=== PATIENT | female | born 1950 | race Caucasian/White ===

== ENCOUNTER → 2017-01-03 | Outpatient (REF) | payer MEDICARE, MEDICAID ==
[~2017-01-03] MED LIST: /GLYB5TA OR; AMLO10TA2 PO; AMLO5TAB2 PO; AMOXICILLIN PO; ASPI325T OR; ASPI81TA7 PO; ATOR80TA14 PO; FISH1000 PO; GLUC1000 OR; GLYB2.5T PO; GLYB5TAB PO; HCTZ OR; HYDR25TA6 OR; INSUH10VL SC; INSULANT SC; LATA0.00 TOP; LISI20TA5 OR; LISINOPRIL OR; LOSA100T37 PO; METO-207 PO; Meclizine Hcl PO; NOVOINJ3 SC; PRIL20CA OR; TRIC145T19 OR; TYLENOL #3 ELIXIR PO; VITAD1000T OR; ZOCO40TA OR; [UNRECOGNIZED DRUG - OTHER] SC; [UNRECOGNIZED DRUG - OTHER] SC; aleve OR; novalog SUBQ; omeprazole DR OR
[2017-01-03 20:19] LABS: ANION GAP 12 MEQ/L (8-16); BLOOD UREA NITROGEN 11 MG/DL (7-18); CALCIUM LEVEL 8.6 MG/DL (8.8-10.2); CARBON DIOXIDE LEVEL 28 MEQ/L (21-32); CHLORIDE LEVEL 102 MEQ/L (98-107); CHOLESTEROL LEVEL 174 MG/DL (<200); CREATININE FOR GFR 0.81 MG/DL (0.55-1.02); GLOMERULAR FILTRATION RATE > 60.0 (>45); GLUCOSE, FASTING 210 MG/DL (80-110); POTASSIUM SERUM 4.4 MEQ/L (3.5-5.1); SODIUM LEVEL 142 MEQ/L (136-145); TRIGLYCERIDES LEVEL 135 MG/DL (<150)
== END ==
LOC: M LAB REF 16:22
PROVIDERS: ATTEND Family Medicine
DX: E11.65 Type 2 diabetes mellitus with hyperglycemia (principal); E78.00 Pure hypercholesterolemia, unspecified; E55.9 Vitamin D deficiency, unspecified

== ENCOUNTER → 2017-04-18 | Outpatient (REF) | payer MEDICARE, MEDICAID | LOC: M LAB REF 17:03 | PROVIDERS: ATTEND Internal Medicine Endocrinology, Diabetes & Metabolism | DX: E11.65 Type 2 diabetes mellitus with hyperglycemia (principal); E55.9 Vitamin D deficiency, unspecified ==

== ENCOUNTER → 2017-12-11 | Outpatient (REF) | payer MEDICARE, MEDICAID ==
[2017-12-11 13:32] LABS: MALB URINE SIEMENS 30.1 MG/L; MAU/CREAT RATIO 21.9 MCG/MG (0.0-30.0)
== END ==
LOC: M LABDRAW1 10:35
DX: E11.65 Type 2 diabetes mellitus with hyperglycemia (principal)
CPT/HCPCS: 82570

== ENCOUNTER → 2017-12-16 | Outpatient (CLI) | payer MEDICARE, MEDICAID ==
[~2017-12-16] MED LIST changes: -/GLYB5TA OR; -AMLO10TA2 PO; -AMLO5TAB2 PO; -AMOXICILLIN PO; -ASPI325T OR; -ASPI81TA7 PO; -ATOR80TA14 PO; -FISH1000 PO; -GLUC1000 OR; -GLYB2.5T PO; -GLYB5TAB PO; -HCTZ OR; -HYDR25TA6 OR; -INSUH10VL SC; -INSULANT SC; +ISOVUE-370 76% 100ML VIAL (Q9967) As Ordered; -LATA0.00 TOP; -LISI20TA5 OR; -LISINOPRIL OR; -LOSA100T37 PO; -METO-207 PO; -Meclizine Hcl PO; -NOVOINJ3 SC; -PRIL20CA OR; -TRIC145T19 OR; -TYLENOL #3 ELIXIR PO; -VITAD1000T OR; -ZOCO40TA OR; -[UNRECOGNIZED DRUG - OTHER] SC; -[UNRECOGNIZED DRUG - OTHER] SC; -aleve OR; -novalog SUBQ; -omeprazole DR OR
== END ==
LOC: M RAD 15:16
DX: R09.89 Other specified symptoms and signs involving the circulatory and respiratory systems (principal); R10.84 Generalized abdominal pain
CPT/HCPCS: Q9967

== ENCOUNTER → 2017-12-17 | Outpatient (REF) | payer MEDICARE, MEDICAID ==
[2017-12-17 16:09] LABS: ANION GAP 11 MEQ/L (8-16); BLOOD UREA NITROGEN 12 MG/DL (7-18); CALCIUM LEVEL 9.1 MG/DL (8.8-10.2); CARBON DIOXIDE LEVEL 28 MEQ/L (21-32); CHLORIDE LEVEL 101 MEQ/L (98-107); CREATININE FOR GFR 0.83 MG/DL (0.55-1.30); GLOMERULAR FILTRATION RATE > 60.0 (>45); GLUCOSE, FASTING 152 MG/DL (70-100); POTASSIUM SERUM 4.4 MEQ/L (3.5-5.1); SODIUM LEVEL 140 MEQ/L (136-145)
== END ==
LOC: M LABDRAW1 14:33
DX: E11.65 Type 2 diabetes mellitus with hyperglycemia (principal)
CPT/HCPCS: 80048

== ENCOUNTER → 2017-12-23 | Outpatient (CLI) | payer MEDICARE, MEDICAID | LOC: M WHC 10:45 | DX: Z12.31 Encounter for screening mammogram for malignant neoplasm of breast (principal); Z78.0 Asymptomatic menopausal state | CPT/HCPCS: 77067 ==

== ENCOUNTER → 2017-12-26 | Outpatient (CLI) | payer MEDICARE, MEDICAID | LOC: M RAD 09:20 | DX: N28.89 Other specified disorders of kidney and ureter (principal); N28.1 Cyst of kidney, acquired | CPT/HCPCS: 76775 ==

== ENCOUNTER → 2018-01-14 | Outpatient (CLI) | payer MEDICARE, MEDICAID | LOC: M RAD 08:53 | DX: R93.421 Abnormal radiologic findings on diagnostic imaging of right kidney (principal) | CPT/HCPCS: Q9967 ==

== ENCOUNTER → 2018-01-22 | Outpatient (CLI) | payer MEDICARE, MEDICAID ==
[2018-01-22 13:31] LABS: HEMATOCRIT 35.9 % (36.0-47.0); HEMOGLOBIN 10.5 g/dl (12.0-15.5); MEAN CORPUSCULAR HEMOGLOBIN 20.7 pg (27.0-33.0); MEAN CORPUSCULAR HGB CONC 29.2 g/dl (32.0-36.5); MEAN CORPUSCULAR VOLUME 70.7 fl (80.0-96.0); PLATELET COUNT, AUTOMATED 369 10^3/uL (150-450); RED BLOOD COUNT 5.08 10^6/uL (4.00-5.40); RED CELL DISTRIBUTION WIDTH 19.7 % (11.5-14.5); WHITE BLOOD COUNT 8.1 10^3/uL (4.0-10.0)
[2018-01-22 13:41] LABS: ALBUMIN 3.8 GM/DL (3.2-5.2); ALBUMIN/GLOBULIN RATIO 1.12 (1.00-1.93); ALKALINE PHOSPHATASE 69 U/L (45-117); ALT/SGPT 24 U/L (12-78); ANION GAP 9 MEQ/L (8-16); AST/SGOT 19 U/L (7-37); BILIRUBIN,TOTAL 0.6 MG/DL (0.2-1.0); BLOOD UREA NITROGEN 10 MG/DL (7-18); CALCIUM LEVEL 9.5 MG/DL (8.8-10.2); CARBON DIOXIDE LEVEL 28 MEQ/L (21-32); CHLORIDE LEVEL 103 MEQ/L (98-107); GLOMERULAR FILTRATION RATE > 60.0 (>45); GLUCOSE, FASTING 122 MG/DL (70-100); POTASSIUM SERUM 4.6 MEQ/L (3.5-5.1); SODIUM LEVEL 140 MEQ/L (136-145); TOTAL PROTEIN 7.2 GM/DL (6.4-8.2)
[2018-01-22 13:55] LABS: INR 0.94; PROTHROMBIN TIME 12.7 SECONDS (12.4-14.5)
[2018-01-22 13:56] LABS: PARTIAL THROMBOPLASTIN TIME 32.6 SECONDS (26.8-37.9)
== END ==
LOC: M SMT 10:40
DX: Z01.818 Encounter for other preprocedural examination (principal); N28.89 Other specified disorders of kidney and ureter
CPT/HCPCS: 80053

== ENCOUNTER 2018-02-12 05:39 | Inpatient (IN) | payer MEDICARE, MEDICAID ==
[2018-02-12] MEDS ORDERED: LIDOCAINE 1% MDV 20ML VIAL SQ (06:00)
[2018-02-12] MEDS ORDERED: LR 1,000 ML IV (06:00)
[2018-02-12 07:19] LABS: BEDSIDE GLUCOSE 210 MG/DL (80-115)
[2018-02-12] MEDS ORDERED: DEXTROSE 50% 50 ML SYRINGE IV (07:30)
[2018-02-12] MEDS ORDERED: GLUCAGON FOR INJ 1 MG VIAL (J1610) SC (07:30)
[2018-02-12] MEDS ORDERED: MORPHINE 4 MG/ML 1ML VIAL/SYRINGE (J2270) IV (07:30)
[2018-02-12] MEDS ORDERED: ONDANSETRON 4MG/2ML VIAL (J2405) IV (07:30)
[2018-02-12] MEDS ORDERED: GLUCOSE 4 GM CHEW TABLET PO (07:30)
[2018-02-12] MEDS ORDERED: PERCOCET 5MG/325MG TAB PO (07:30)
[2018-02-12] MEDS: LIDOCAINE 4% INJ 5 ML AMP NEB (07:40)
[2018-02-12] MEDS ORDERED: CETACAINE SPRAY 5GM As Ordered (08:08)
[2018-02-12] MEDS ORDERED: ROCURONIUM BROMIDE 50 MG/5 ML VIAL As Ordered ×2 (08:30→08:40)
[2018-02-12] MEDS ORDERED: ONDANSETRON 4MG/2ML VIAL (J2405) As Ordered (08:30)
[2018-02-12] MEDS ORDERED: LIDOCAINE 2% INJ 100 MG/5 ML SDV (FOR ANES.) As Ordered (08:30)
[2018-02-12] MEDS ORDERED: REMIFENTANIL 1MG 3ML VIAL As Ordered ×3 (08:30→10:58)
[2018-02-12] MEDS ORDERED: METOCLOPRAMIDE INJ 10MG/2ML VIAL (J2765) As Ordered (08:30)
[2018-02-12] MEDS ORDERED: SEVOFLURANE INHAL SOLN 250 ML BTL As Ordered (08:30)
[2018-02-12] MEDS ORDERED: fentaNYL 250 MCG/5 ML INJECTION (J3010) As Ordered (08:30)
[2018-02-12] MEDS ORDERED: PROPOFOL 200 MG/20 ML VIAL As Ordered (08:30)
[2018-02-12] MEDS ORDERED: MIDAZOLAM INJ 2 MG/2 ML VIAL (J2250) As Ordered (08:30)
[2018-02-12] MEDS ORDERED: dexameTHASONE 4 MG/ML 1ML VIAL (J1100) As Ordered (08:30)
[2018-02-12] MEDS ORDERED: SUGAMMADEX SODIUM 500 MG/5 ML VIAL (BRIDION) As Ordered (08:30)
[2018-02-12] MEDS ORDERED: ePHEDrine SULFATE 25 MG/5 ML(5MG/ML) SYRINGE As Ordered ×2 (08:39)
[2018-02-12] MEDS ORDERED: PHENYLephrine HCL 500 MCG/5 ML (100MCG/ML) SYRINGE (J2370) As Ordered ×2 (08:39)
[2018-02-12] MEDS ORDERED: VECURONIUM BROMIDE 10 MG VIAL As Ordered (10:50)
[2018-02-12] MEDS: MANNITOL 25% 12.5 GM/50 ML VIAL (J2150) As Ordered (10:59)
[2018-02-12] MEDS: BUPIVACAINE HCL 0.25% 30 ML VIAL As Ordered (12:55)
[2018-02-12] MEDS: LIDOCAINE 1% SDV INJ 30 ML VIAL As Ordered (12:55)
[2018-02-12] MEDS: PERCOCET 5MG/325MG TAB PO ×3 (13:38→18:33)
[2018-02-12 13:42] LABS: HEMATOCRIT 33.9 % (36.0-47.0); HEMOGLOBIN 10.3 g/dl (12.0-15.5); MEAN CORPUSCULAR HGB CONC 30.4 g/dl (32.0-36.5); PLATELET COUNT, AUTOMATED 347 10^3/uL (150-450); RED BLOOD COUNT 4.91 10^6/uL (4.00-5.40); RED CELL DISTRIBUTION WIDTH 19.3 % (11.5-14.5); WHITE BLOOD COUNT 13.8 10^3/uL (4.0-10.0)
[2018-02-12] MEDS: fentaNYL 100 MCG/2 ML INJECTION (J3010) IV ×5 (13:42→15:32)
[2018-02-12] MEDS ORDERED: HYDROmorphone HCL 1 MG/ML SYRINGE (J1170) IV (13:45)
[2018-02-12] MEDS: LR 1,000 ML IV (13:45)
[2018-02-12 13:46] LABS: BEDSIDE GLUCOSE 228 MG/DL (80-115)
[2018-02-12] MEDS: HumaLOG INSULIN (NovoLOG) PER UNIT SC ×5 (13:50→20:01)
[2018-02-12] MEDS: ONDANSETRON 4MG/2ML VIAL (J2405) IV (13:54)
[2018-02-12 14:04] LABS: ANION GAP 12 MEQ/L (8-16); BLOOD UREA NITROGEN 16 MG/DL (7-18); CARBON DIOXIDE LEVEL 24 MEQ/L (21-32); CHLORIDE LEVEL 102 MEQ/L (98-107); CREATININE FOR GFR 1.15 MG/DL (0.55-1.30); GLOMERULAR FILTRATION RATE 49.8 (>45); GLUCOSE, FASTING 217 MG/DL (70-100); POTASSIUM SERUM 4.1 MEQ/L (3.5-5.1); SODIUM LEVEL 138 MEQ/L (136-145)
[2018-02-12 14:05] LABS: CALCIUM LEVEL 9.1 MG/DL (8.8-10.2)
[2018-02-12] MEDS: NS 1,000 ML IV ×3 (15:24→23:35)
[2018-02-12] MEDS: DOCUSATE SODIUM 100 MG CAP PO ×2 (15:34→20:06)
[2018-02-12] MEDS: ASPIRIN 81 MG ENTERIC TAB PO (15:56)
[2018-02-12] MEDS: SPIRONOLACTONE 25 MG TAB PO (15:57)
[2018-02-12] MEDS: CEFAZOLIN SOD 1 GM in APPROPRIATE DILUENT 1 EA IV ×2 (15:58→23:35)
[2018-02-12 17:40] LABS: BEDSIDE GLUCOSE 233 MG/DL (80-115)
[2018-02-12] MEDS: LATANOPROST 0.005% OPHTH SOLN 2.5 ML OU (20:06)
[2018-02-12] MEDS: ATORVASTATIN 20 MG TAB PO (20:06)
[2018-02-12 20:33] LABS: BEDSIDE GLUCOSE 212 MG/DL (80-115)
[2018-02-13] MEDS: PERCOCET 5MG/325MG TAB PO ×2 (01:34→12:25)
[2018-02-13] MEDS: NS 1,000 ML IV (05:25)
[2018-02-13 05:54] LABS: HEMATOCRIT 31.2 % (36.0-47.0); HEMOGLOBIN 9.4 g/dl (12.0-15.5); MEAN CORPUSCULAR HEMOGLOBIN 20.8 pg (27.0-33.0); MEAN CORPUSCULAR HGB CONC 30.1 g/dl (32.0-36.5); PLATELET COUNT, AUTOMATED 328 10^3/uL (150-450); RED BLOOD COUNT 4.52 10^6/uL (4.00-5.40); WHITE BLOOD COUNT 12.7 10^3/uL (4.0-10.0)
[2018-02-13 06:14] LABS: ANION GAP 8 MEQ/L (8-16); BLOOD UREA NITROGEN 14 MG/DL (7-18); CALCIUM LEVEL 8.5 MG/DL (8.8-10.2); CARBON DIOXIDE LEVEL 27 MEQ/L (21-32); CHLORIDE LEVEL 102 MEQ/L (98-107); CREATININE FOR GFR 1.22 MG/DL (0.55-1.30); GLOMERULAR FILTRATION RATE 46.5 (>45); GLUCOSE, FASTING 201 MG/DL (70-100); POTASSIUM SERUM 4.1 MEQ/L (3.5-5.1); SODIUM LEVEL 137 MEQ/L (136-145)
[2018-02-13] MEDS: METOPROLOL SUCC (TopROL XL) 50MG **XL** TAB PO (07:57)
[2018-02-13] MEDS: HumaLOG INSULIN (NovoLOG) PER UNIT SC ×4 (07:57→20:18)
[2018-02-13] MEDS: amLODIPine 10 MG TAB PO (07:58)
[2018-02-13] MEDS: SPIRONOLACTONE 25 MG TAB PO (07:58)
[2018-02-13] MEDS: ASPIRIN 81 MG ENTERIC TAB PO (07:58)
[2018-02-13] MEDS: OMEPRAZOLE 20 MG CAP PO (07:58)
[2018-02-13] MEDS: DOCUSATE SODIUM 100 MG CAP PO ×2 (07:58→20:25)
[2018-02-13] MEDS: PNEUMOCOCCAL VACCINE 0.5ML SYRINGE(90732) PNEUMOVAX 23 IM (17:44)
[2018-02-13 20:13] LABS: BEDSIDE GLUCOSE 179 MG/DL (80-115)
[2018-02-13 20:13] LABS: BEDSIDE GLUCOSE 206 MG/DL (80-115)
[2018-02-13] MEDS: ATORVASTATIN 20 MG TAB PO (20:24)
[2018-02-13] MEDS: ACETAMINOPHEN TAB 650MG DOSE (2X325MG) PO (20:25)
[2018-02-13] MEDS: LATANOPROST 0.005% OPHTH SOLN 2.5 ML OU (20:25)
[2018-02-14 05:59] LABS: HEMATOCRIT 30.8 % (36.0-47.0); HEMOGLOBIN 9.2 g/dl (12.0-15.5); MEAN CORPUSCULAR HEMOGLOBIN 20.9 pg (27.0-33.0); MEAN CORPUSCULAR HGB CONC 29.9 g/dl (32.0-36.5); PLATELET COUNT, AUTOMATED 286 10^3/uL (150-450); RED CELL DISTRIBUTION WIDTH 19.1 % (11.5-14.5); WHITE BLOOD COUNT 10.1 10^3/uL (4.0-10.0)
[2018-02-14 06:19] LABS: ANION GAP 6 MEQ/L (8-16); BLOOD UREA NITROGEN 10 MG/DL (7-18); CALCIUM LEVEL 8.6 MG/DL (8.8-10.2); CARBON DIOXIDE LEVEL 28 MEQ/L (21-32); CHLORIDE LEVEL 104 MEQ/L (98-107); CREATININE FOR GFR 1.02 MG/DL (0.55-1.30); GLOMERULAR FILTRATION RATE 57.2 (>45); GLUCOSE, FASTING 191 MG/DL (70-100); POTASSIUM SERUM 4.2 MEQ/L (3.5-5.1); SODIUM LEVEL 138 MEQ/L (136-145)
[2018-02-14] MEDS: OMEPRAZOLE 20 MG CAP PO (08:02)
[2018-02-14] MEDS: amLODIPine 10 MG TAB PO (08:02)
[2018-02-14] MEDS: ASPIRIN 81 MG ENTERIC TAB PO (08:03)
[2018-02-14] MEDS: HumaLOG INSULIN (NovoLOG) PER UNIT SC ×2 (08:03→12:00)
[2018-02-14] MEDS: METOPROLOL SUCC (TopROL XL) 50MG **XL** TAB PO (08:03)
[2018-02-14] MEDS: DOCUSATE SODIUM 100 MG CAP PO (08:03)
[2018-02-14] MEDS: SPIRONOLACTONE 25 MG TAB PO (08:03)
[2018-02-14 12:25] LABS: BEDSIDE GLUCOSE 215 MG/DL (80-115)
[2018-02-16 15:02] LABS: iSTAT CA++ 4.9 MG/DL (4.5-5.3)
== END 2018-02-14 12:47 | disposition home or self-care (01) | DRG 657 ==
LOC: M OR 05:39 → M MSPAV 14:50
PROVIDERS: Urology
PROC: 0TB04ZZ Excision of Right Kidney, Percutaneous Endoscopic Approach (ICD-10-PCS; principal; 2018-02-12 07:30)
PROC: 8E0W4CZ Robotic Assisted Procedure of Trunk Region, Percutaneous Endoscopic Approach (ICD-10-PCS; 2018-02-12 07:30)
DX: C64.1 Malignant neoplasm of right kidney, except renal pelvis (principal); Z68.43 Body mass index [BMI] 50.0-59.9, adult; Z87.891 Personal history of nicotine dependence; I10 Essential (primary) hypertension; E66.01 Morbid (severe) obesity due to excess calories; G47.33 Obstructive sleep apnea (adult) (pediatric); E78.2 Mixed hyperlipidemia; E11.65 Type 2 diabetes mellitus with hyperglycemia; Z79.4 Long term (current) use of insulin; Z79.899 Other long term (current) drug therapy

== ENCOUNTER → 2018-02-25 | Outpatient (CLI) | payer MEDICARE, MEDICAID ==
[2018-02-25 13:16] LABS: MEAN CORPUSCULAR HEMOGLOBIN 20.7 pg (27.0-33.0); MEAN CORPUSCULAR HGB CONC 29.4 g/dl (32.0-36.5); MEAN CORPUSCULAR VOLUME 70.5 fl (80.0-96.0); PLATELET COUNT, AUTOMATED 546 10^3/uL (150-450); RED BLOOD COUNT 4.82 10^6/uL (4.00-5.40); RED CELL DISTRIBUTION WIDTH 19.9 % (11.5-14.5); WHITE BLOOD COUNT 11.9 10^3/uL (4.0-10.0)
[2018-02-25 13:54] LABS: ANION GAP 10 MEQ/L (8-16); BLOOD UREA NITROGEN 21 MG/DL (7-18); CALCIUM LEVEL 9.4 MG/DL (8.8-10.2); CARBON DIOXIDE LEVEL 28 MEQ/L (21-32); CHLORIDE LEVEL 102 MEQ/L (98-107); CREATININE FOR GFR 1.27 MG/DL (0.55-1.30); GLOMERULAR FILTRATION RATE 44.4 (>45); GLUCOSE, FASTING 184 MG/DL (70-100); SODIUM LEVEL 140 MEQ/L (136-145)
[2018-02-25 14:00] LABS: POTASSIUM SERUM 5.2 MEQ/L (3.5-5.1)
== END ==
LOC: M SMT 08:39
DX: C64.9 Malignant neoplasm of unspecified kidney, except renal pelvis (principal)
CPT/HCPCS: 80048

== ENCOUNTER → 2018-03-03 | Outpatient (CLI) | payer MEDICARE, MEDICAID ==
[2018-03-03 13:41] LABS: APPEARANCE, URINE CLOUDY (CLEAR); BACTERIA, URINE AUTO 2+ (NEGATIVE); BILIRUBIN, URINE AUTO NEGATIVE (NEGATIVE); BLOOD, URINE BLOOD 2+ (NEGATIVE); COLOR, URINE YELLOW (YELLOW); GLUCOSE, URINE (UA) AUTO NEGATIVE (NEGATIVE); KETONE, URINE AUTO NEGATIVE (NEGATIVE); LEUKOCYTE ESTERASE, URINE AUTO 3+ (NEGATIVE); MUCUS, URINE SMALL (NEGATIVE); NITRITE, URINE AUTO NEGATIVE (NEGATIVE); PROTEIN, URINE AUTO 1+ mg/dL (NEGATIVE); RBC, URINE AUTO 7 /HPF (0-3); SPECIFIC GRAVITY URINE AUTO 1.013 (1.002-1.035); SQUAMOUS EPITHELIAL CELL UR AU 10 /HPF (0-6); UROBILINOGEN, URINE AUTO 0.2 mg/dL (0.0-2.0); WBC, URINE AUTO TNTC /HPF (0-3)
[2018-03-03 13:46] LABS: ANION GAP 12 MEQ/L (8-16); BLOOD UREA NITROGEN 19 MG/DL (7-18); CALCIUM LEVEL 9.2 MG/DL (8.8-10.2); CARBON DIOXIDE LEVEL 25 MEQ/L (21-32); CHLORIDE LEVEL 103 MEQ/L (98-107); CREATININE FOR GFR 1.25 MG/DL (0.55-1.30); GLOMERULAR FILTRATION RATE 45.2 (>45); GLUCOSE, FASTING 119 MG/DL (70-100); POTASSIUM SERUM 4.7 MEQ/L (3.5-5.1); SODIUM LEVEL 140 MEQ/L (136-145)
== END ==
LOC: M SMT 10:37
DX: E87.5 Hyperkalemia (principal); R30.0 Dysuria
CPT/HCPCS: 80048

== ENCOUNTER → 2018-09-28 | Outpatient (CLI) | payer MEDICARE, MEDICAID ==
[2018-09-28 19:24] LABS: ANION GAP 13 MEQ/L (8-16); BLOOD UREA NITROGEN 22 MG/DL (7-18); CALCIUM LEVEL 9.1 MG/DL (8.8-10.2); CARBON DIOXIDE LEVEL 24 MEQ/L (21-32); CHLORIDE LEVEL 103 MEQ/L (98-107); CREATININE FOR GFR 1.19 MG/DL (0.55-1.30); GLOMERULAR FILTRATION RATE 47.7 (>39); GLUCOSE, FASTING 80 MG/DL (70-100); POTASSIUM SERUM 4.9 MEQ/L (3.5-5.1); SODIUM LEVEL 140 MEQ/L (136-145)
== END ==
LOC: M SMT 13:35
DX: C64.9 Malignant neoplasm of unspecified kidney, except renal pelvis (principal)
CPT/HCPCS: 80048

== ENCOUNTER → 2018-09-30 | Outpatient (CLI) | payer MEDICARE, MEDICAID | LOC: M RAD 10:45 | DX: C64.9 Malignant neoplasm of unspecified kidney, except renal pelvis (principal); Z90.5 Acquired absence of kidney | CPT/HCPCS: Q9967 ==

== ENCOUNTER → 2019-02-17 | Outpatient (REF) | payer MEDICARE, MEDICAID ==
[~2019-02-17] MED LIST changes: +AMLO10TA5 PO; +AMLO5TAB2 PO; +AMOXICILLIN PO; +ASPI325T OR; +ASPI81TA7 PO; +ATOR80TA14 PO; +CALCTAB97 PO; +FISH1000 PO; +GLUC1000 OR; +GLYB1TAB29 OR; +GLYB1TAB67 PO; +GLYB2.5T PO; +HCTZ OR; +HYDR25TA6 OR; +INSUH10VL SC; +INSULANT SC; -ISOVUE-370 76% 100ML VIAL (Q9967) As Ordered; +LATA0.00 OU; +LEVE1INJ5 SC; +LISI20TA5 OR; +LISINOPRIL OR; +LOSA100T5 PO; +METF500T13 PO; +METO1TAB7 PO; +Meclizine Hcl PO; +NOVOINJ3 SC; +OMEP40CA2 PO; +PRIL20CA OR; +SPIR-10 PO; +TRIC145T19 OR; +TYLENOL #3 ELIXIR PO; +VITAD1000T OR; +ZOCO40TA OR; +[UNRECOGNIZED DRUG - OTHER] SC; +[UNRECOGNIZED DRUG - OTHER] SC; +aleve OR; +novalog SUBQ; +omeprazole DR OR
== END ==
LOC: M LAB REF 13:17
PROVIDERS: ATTEND Family Medicine
DX: L02.221 Furuncle of abdominal wall (principal)

== ENCOUNTER → 2019-10-04 | Outpatient (CLI) | payer MEDICARE, MEDICAID ==
[~2019-10-04] MED LIST changes: -GLYB1TAB67 PO; +GLYB5TAB12 PO; -OMEP40CA2 PO; +OMEP40CA97 PO
[2019-10-04 18:44] LABS: CALCIUM LEVEL 9.6 MG/DL (8.8-10.2); CREATININE FOR GFR 1.32 MG/DL (0.55-1.30); GLOMERULAR FILTRATION RATE 42.2 (>39); POTASSIUM SERUM 4.6 MEQ/L (3.5-5.1)
== END ==
LOC: M PLALAB 12:42
PROVIDERS: ATTEND Urology
DX: C64.9 Malignant neoplasm of unspecified kidney, except renal pelvis (principal)

== ENCOUNTER → 2019-10-04 | Outpatient (CLI) | payer MEDICARE, MEDICAID ==
--- NOTE | 2019-10-04 13:40 | REPMRS ---
Patient History The patient states she has not had a clinical breast exam in over a year. Patient is postmenopausal and has history of renal cancer at age 68. No known family history of cancer. Benign cyst aspiration of the right breast, 2000. No Hormone Replacement Therapy 3D TOMOSYNTHESIS WAS PERFORMED. [facility] lifetime risk for breast cancer is 5.1%. Digital Woman Screen Mammo: October 04, 2019 - Exam #: [id number] Bilateral CC and MLO view(s) were taken. Technologist: Iwona Cornelius, Technologist Prior study comparison: December 23, 2017, digital woman screen mammo performed at [facility]. May 21, 2016, digital woman screen mammo performed at [facility]. FINDINGS: There are scattered fibroglandular densities. There has been no change in the appearance of the mammogram from the prior studies. There is a mild amount of residual fibroglandular tissue which is fairly symmetric. There is no interval development of dominant mass, architectural distortion, or clustered microcalcification suggestive of malignancy. Assessment: BI-RADS/ACR category 1 mammogram. Negative Mammogram. Recommendation Routine screening mammogram in 1 year (for women over age 40). This mammogram was interpreted with the aid of an FDA-approved computer-aided dectection system. Electronically Signed By: Johny Alexandra MD 10/04/19 1794
== END ==
LOC: M WHC 11:56
PROVIDERS: ATTEND Obstetrics & Gynecology
DX: Z12.31 Encounter for screening mammogram for malignant neoplasm of breast (principal); C64.9 Malignant neoplasm of unspecified kidney, except renal pelvis

== ENCOUNTER → 2019-10-18 | Outpatient (CLI) | payer MEDICARE, MEDICAID ==
[~2019-10-18] MED LIST changes: +ISOVUE-370 76% 100ML VIAL (Q9967) As Ordered ONE
--- NOTE | 2019-10-18 10:21 | REP ---
Clinical: Renal cell carcinoma. Technique: Axial precontrast, contrast enhanced, and delayed images of the abdomen using 100 ml Isovue 370 intravenous contrast material with coronal and sagittal re-formations. Comparison: 09/30/2018. Findings: Postsurgical changes involving the right kidney consistent with partial nephrectomy remains stable as compared to 09/30/2018. Left kidney is normal. No evidence for recurrent renal mass lesion, cyst hydronephrosis or nephroureterolithiasis. Liver, spleen, pancreas, gallbladder, and bilateral adrenal glands are relatively normal / stable. Visualized portions of the enteric system are unremarkable. No ascites. No adenopathy. No free air. Atherosclerotic changes of the aorta noted without aneurysm. Skeletal structures demonstrate degenerative changes without focal abnormality. Impression: Stable postsurgical changes involving the right kidney. No evidence for recurrence or metastatic disease. No new acute abdominal pathology appreciated. Electronically Signed by Deshaun Frazier MD 10/18/2019 10:13 A
== END ==
LOC: M RAD 09:15
PROVIDERS: ATTEND Urology
DX: C64.9 Malignant neoplasm of unspecified kidney, except renal pelvis (principal)
CPT/HCPCS: 74170; Q9967

== ENCOUNTER → 2020-05-15 | Outpatient (CLI) | payer MEDICARE, MEDICAID ==
[~2020-05-15] MED LIST changes: -AMLO10TA5 PO; +AMLO1TAB25 PO; +ASPI81TA86 PO; +ATOR80TA59 PO; +DOXY1CAP60 PO; +FERR325T3 PO; +HYDR25TAB PO; -ISOVUE-370 76% 100ML VIAL (Q9967) As Ordered ONE; +LOSA100T50 PO; +MECL1TAB31 PO; +OMEG10002 PO; +TOBRSUS8 OP; +VITA500079 PO; +XALA0.007 OU
[2020-05-15 13:52] LABS: BASO # 0.1 10^3/uL (0.0-0.2); EOS # 0.2 10^3/uL (0.0-0.5); EOS % 2.5 % (0.0-3.0); HEMATOCRIT 41.4 % (36.0-47.0); LYMPH # 1.7 10^3/uL (1.5-5.0); LYMPH % 20.8 % (24.0-44.0); MEAN CORPUSCULAR HEMOGLOBIN 27.7 pg (27.0-33.0); MEAN CORPUSCULAR HGB CONC 31.4 g/dl (32.0-36.5); MEAN CORPUSCULAR VOLUME 88.3 fl (80.0-96.0); MONO # 0.5 10^3/uL (0.0-0.8); MONO % 6.4 % (0.0-5.0); NEUTROPHILS # 5.7 10^3/uL (1.5-8.5); NEUTROPHILS % 68.9 % (36.0-66.0); PLATELET COUNT, AUTOMATED 328 10^3/uL (150-450); RED BLOOD COUNT 4.69 10^6/uL (4.00-5.40); WHITE BLOOD COUNT 8.2 10^3/uL (4.0-10.0)
[2020-05-15 13:54] LABS: CALCIUM LEVEL 9.5 MG/DL (8.8-10.2); CREATININE FOR GFR 1.33 MG/DL (0.55-1.30); GLOMERULAR FILTRATION RATE 41.9 (>39); POTASSIUM SERUM 5.2 MEQ/L (3.5-5.1)
[2020-05-15 14:13] LABS: HEMOGLOBIN A1c 8.1 %
[2020-05-15 14:16] LABS: ALBUMIN 3.4 GM/DL (3.2-5.2); BILIRUBIN,TOTAL 0.7 MG/DL (0.2-1.0); CALCIUM LEVEL 9.4 MG/DL (8.8-10.2); CHOLESTEROL RISK RATIO 3.354 (<5); CREATININE FOR GFR 1.28 MG/DL (0.55-1.30); GLOMERULAR FILTRATION RATE 43.8 (>39); POTASSIUM SERUM 5.3 MEQ/L (3.5-5.1)
== END ==
LOC: M PLALAB 08:43
PROVIDERS: ATTEND Nurse Practitioner Family
DX: E11.65 Type 2 diabetes mellitus with hyperglycemia (principal); E11.69 Type 2 diabetes mellitus with other specified complication; Z79.82 Long term (current) use of aspirin; Z79.4 Long term (current) use of insulin; Z79.899 Other long term (current) drug therapy

== ENCOUNTER → 2020-05-26 | Outpatient (REF) | payer MEDICARE, MEDICAID ==
[2020-07-13 19:48] LABS: MALB URINE SIEMENS 11.9 MG/L
== END ==
LOC: M PLALAB 10:13
PROVIDERS: ATTEND Family Medicine
DX: E11.69 Type 2 diabetes mellitus with other specified complication (principal)

== ENCOUNTER → 2020-06-26 | Outpatient (CLI) | payer MEDICARE, MEDICAID ==
--- NOTE | 2020-06-26 14:24 | REPVR ---
PROCEDURE INFORMATION: Exam: CT Neck Without Contrast Exam date and time: 06/26/2020 1:43 PM Age: 70 years old Clinical indication: Other: Subglottic stenosis TECHNIQUE: Imaging protocol: Computed tomography images of the neck without contrast. Radiation optimization: All CT scans at this facility use at least one of these dose optimization techniques: automated exposure control; mA and/or kV adjustment per patient size (includes targeted exams where dose is matched to clinical indication); or iterative reconstruction. COMPARISON: US Duplex,carotid (complete) 01/14/2015 3:57 PM FINDINGS: Nasopharynx: Unremarkable. Oropharynx: Unremarkable. No significant tonsillar enlargement. Hypopharynx: Unremarkable. Larynx: Unremarkable. Normal epiglottis. Retropharyngeal space: Unremarkable. Submandibular/Parotid glands: Normal. Glands are normal in size. Thyroid: There is a metal artifact possibly a marker anteriorly at the level of the thyroid cartilage. Lymph nodes: Unremarkable. No lymphadenopathy. Trachea: Visualized trachea is unremarkable. Lungs: Unremarkable as visualized. Bones/joints: Is moderate to severe arthritic changes in the cervical spine.. No acute fracture. Soft tissues: Unremarkable. No significant soft tissue swelling. IMPRESSION: No acute abnormality on this non IV contrast neck examination. Electronically signed by: Chele Trevino On 06/26/2020 14:24:14 PM
== END ==
LOC: M RAD 13:31
PROVIDERS: ATTEND Otolaryngology
DX: J38.6 Stenosis of larynx (principal)

== ENCOUNTER → 2020-09-29 | Outpatient (CLI) | payer MEDICARE, MEDICAID ==
[~2020-09-29] MED LIST changes: +ISOVUE-370 76% 100ML VIAL As Ordered ONE
--- NOTE | 2020-09-29 12:31 | REP ---
INDICATION: RENAL CELL CA. COMPARISON: 01/22/2018 the latest prior FINDINGS: There is mild cardiomegaly status quo. The lung urban are stable. No acute patchy parenchymal opacities or pleural effusions have developed. There is no significant change in appearance of the osseous structures. Spinal degenerative changes are again noted. IMPRESSION: No acute cardiopulmonary disease. Mild cardiomegaly status quo. Comment: If clinical suspicion is high due to the patient's history of renal cell carcinoma then contrast enhanced CT is more sensitive. <Electronically signed by Grant Zuniga > 09/29/20 [id number]
--- NOTE | 2020-09-29 14:09 | REP ---
INDICATION: RENAL CELL CA. Status post partial nephrectomy on the right. COMPARISON: Comparison CT studies are reviewed from October 18, 2019 and January 14, 2018.. TECHNIQUE: Pre and postcontrast imaging of the abdomen is acquired. The contrast enhancement dose is 100 mL of intravenous Isovue 370. 3 mm axial images are generated. Coronal and sagittal MPR images are generated and reviewed. FINDINGS: Preliminary digital research program manager radiograph is unremarkable. The lung bases are clear on axial CT images. The liver and spleen remain normal in size homogeneous in texture. Normal adrenal glands are seen bilaterally. There is a punctate calcification in the pancreatic head again noted unchanged. No abnormality is noted in the pancreas. There are postsurgical fibrotic changes adjacent to the right upper pole of the kidney posteriorly at the resection site. There is no evidence of residual or recurrent mass lesion. There is some cortical thinning here. Delayed scan images show symmetrical opacification of the collecting system without filling defect. There is no evidence of renal vein in large min on either side. No regional adenopathy is apparent. No left renal mass lesion is observed. No bony destructive lesion. IMPRESSION: No evidence of residual or recurrent mass or adenopathy. Post partial nephrectomy changes on the right. <Electronically signed by Josep Maya > 09/29/20 [id number]
== END ==
LOC: M RAD 10:31
PROVIDERS: ATTEND Urology
DX: C64.9 Malignant neoplasm of unspecified kidney, except renal pelvis (principal); I51.7 Cardiomegaly; Z90.5 Acquired absence of kidney
CPT/HCPCS: 71046; 74170; Q9967

== ENCOUNTER → 2020-10-17 | Outpatient (CLI) | payer MEDICARE, MEDICAID ==
[~2020-10-17] MED LIST changes: -ISOVUE-370 76% 100ML VIAL As Ordered ONE
[2020-10-17 12:31] LABS: CALCIUM LEVEL 9.6 MG/DL (8.8-10.2); CREATININE FOR GFR 1.23 MG/DL (0.55-1.30); GLOMERULAR FILTRATION RATE 45.7 (>39); POTASSIUM SERUM 4.9 MEQ/L (3.5-5.1)
== END ==
LOC: M PLALAB 09:17
PROVIDERS: ATTEND Family Medicine
DX: I10 Essential (primary) hypertension (principal)

== ENCOUNTER → 2021-02-01 | Outpatient (CLI) | payer MEDICARE, MEDICAID ==
[~2021-02-01] MED LIST changes: +HYDR-3490 PO; -HYDR25TAB PO
--- NOTE | 2021-02-01 12:35 | REP ---
INDICATION: ENDOMETRIAL HYPERPLASIA. COMPARISON: 12/02/2012. TECHNIQUE: Transabdominal and endovaginal pelvic ultrasound. FINDINGS: Neither the uterus nor the right or left ovaries could be visualized on either transabdominal or endovaginal imaging because of body habitus and bowel interference. IMPRESSION: Suboptimal study. Consider pelvic MRI for further evaluation. <Electronically signed by Johny Carrasco > 02/01/21 1934
== END ==
LOC: M RAD 11:10
PROVIDERS: ATTEND Family Medicine
DX: N85.00 Endometrial hyperplasia, unspecified (principal); R93.9 Diagnostic imaging inconclusive due to excess body fat of patient

== ENCOUNTER → 2021-04-28 | Outpatient (CLI) | payer MEDICARE, MEDICAID ==
[~2021-04-28] MED LIST changes: +ASPI81TA26 PO; +OMEP40CA4 PO; -OMEP40CA97 PO; +VITA1CAP25 PO; +vitamin d3
== END ==
LOC: M LABSMTC 10:16
PROVIDERS: ATTEND Anesthesiology
DX: Z01.818 Encounter for other preprocedural examination (principal); Z11.52 Encounter for screening for COVID-19

== ENCOUNTER 2021-05-03 08:20 | Day surgery (SDC) | payer MEDICARE, MEDICAID ==
[~2021-05-03] VITALS: Ht 152.4 cm; Wt 159.8 kg
[~2021-05-03 08:20] MED LIST changes: +LIDOCAINE 1% MDV 20ML VIAL SQ PRN; +LR 1,000 ML IV ONE; +ceFAZolin SOD 2 GM in IV 1 EA IV ONE
[2021-05-03] MEDS ORDERED: ONDANSETRON 4MG/2ML VIAL As Ordered ONE (08:37)
[2021-05-03] MEDS ORDERED: MIDAZOLAM INJ 2MG/2ML VIAL (J2250 PER 1MG) As Ordered ONE (08:37)
[2021-05-03] MEDS ORDERED: dexameTHASONE 4 MG/ML 1ML VIAL (J1100 PER 1MG) As Ordered ONE (08:37)
[2021-05-03] MEDS ORDERED: LIDOCAINE 2% 100MG/5ML SDV (FOR ANES.) As Ordered ONE (08:37)
[2021-05-03] MEDS ORDERED: KETOROLAC 60MG 2ML VIAL As Ordered ONE (08:37)
[2021-05-03] MEDS ORDERED: SUGAMMADEX SODIUM 500 MG/5 ML VIAL (BRIDION) As Ordered ONE (08:37)
[2021-05-03] MEDS ORDERED: propofoL 200 MG/20 ML VIAL As Ordered ONE (08:37)
[2021-05-03] MEDS ORDERED: ROCURONIUM BROMIDE 50 MG/5 ML VIAL As Ordered ONE (08:37)
[2021-05-03] MEDS ORDERED: fentaNYL 100 MCG/2 ML INJECTION (J3010) As Ordered ONE (08:38)
[2021-05-03] MEDS ORDERED: BUPIVACAINE HCL 0.25% 10ML VIAL As Ordered ONE (11:00)
[2021-05-03] MEDS ORDERED: PHENYLephrine 500MCG 5ML (100MCG/ML) SYRINGE As Ordered ONE (11:50)
[2021-05-03] MEDS ORDERED: ePHEDrine SULFATE 25 MG/5 ML(5MG/ML) SYRINGE As Ordered ONE (11:50)
[2021-05-03] MEDS ORDERED: LR 1,000 ML IV SCH ×2 (12:40)
[2021-05-03] MEDS ORDERED: fentaNYL 100 MCG/2 ML INJECTION (J3010) IV PRN (12:40)
[2021-05-03] MEDS ORDERED: ONDANSETRON 4MG/2ML VIAL IV PRN (12:40)
[2021-05-03] MEDS ORDERED: MEPERIDINE INJ 25 MG/ML VIAL (J2175) IV PRN (12:40)
[2021-05-03] MEDS ORDERED: oxyCODONE 5MG TAB PO PRN (12:40)
[2021-05-03 14:15] VITALS: BP 172/78
--- NOTE | 2021-05-04 09:19 | RO ---
OPERATIVE NOTE DATE OF OPERATION: 05/03/2021 PREOPERATIVE DIAGNOSIS/INDICATIONS FOR SURGERY: Separate diagnosis for separate organ procedures: Postmenopausal bleeding with abnormal sono which was the indication for her D&C, hysteroscopy which became a MyoSure polypectomy in addition; she also had diagnosis of intrinsic sphincteric deficiency and incontinence which was the indication for her cystourethroscopy with Macroplastique periurethral bulking procedure. POSTOPERATIVE DIAGNOSIS: PROCEDURE: SURGEON: Veronica Mckinnon MD KILN FEEDER: None. ANESTHESIA: General endotracheal anesthesia. SPECIMENS: Endometrium with polyps, more than four polyps. DESCRIPTION OF PROCEDURE/FINDINGS: Madelyn was brought to the operating room. 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 We also repositioned her pannus after she was asleep to facilitate the surgery and otherwise positioned, draped and prepped her in normal fashion for these procedures in lithotomy. Bladder was emptied. Cervix was grasped with single tooth tenaculum. She has reasonable sized rectocele which will not be repaired in this patient given her other medical issues. The cervix was dilated and hysteroscope introduced showing a large lingular polyp filling the entire cavity and then there was a cluster of 4 or 5 smaller polyps toward the left ostia and another one toward the right ostia. With the MyoSure reach we were able to resect all of these. Pictures were taken to document the progress and then also to document the empty cavity. We did sample the endometrium as well but we resected all of the polyps. We were able to see a fairly reassuring bland endometrium otherwise, so she is prone to polyp formation, they did not seem hypervascular and there no frond-like growths, no area of erosion so I have a feeling that these are hypertrophic polyps without malignancy but of course the pathology is pending and all of this was sent to pathologist for evaluation. The cavity is otherwise of normal contour, normal ostia, etc and with the endometrial sampling and resection completed attention was turned to the cystoscopy. Bladder evaluation showed a little bit of age-related changes but otherwise no polyps, no specific lesions. I also took photos inside the bladder and then photos at the bladder neck. Macroplastique was injected first on the right side about 1/2 ampule which coapted that site quite well and then a little more to the left so I am working at first 8 o'clock and then at 4 o'clock which was what appeared to be indicated by her anatomy. Actually at 6 o'clock she still had a bulge there so she did not need more in that location. After the first injection we tried to reposition the needle to get a better angle for the patient's left side and then the needle swung around behind the scope so of course we could not see it, we pulled it out and tried to reposition several times and we ended up using one of the MyoSure scopes to work on the left side, although that is a straight scope it did at least give us a view of the needle location which is what we needed for placement so we could get it in to the second supriya and carefully inject and narrow down the urethra at the area of the sphincter to help support the valve and minimize her ISD. After the injection we waited before removing the needle and then the procedure was ended. ESTIMATED BLOOD LOSS FOR PROCEDURE: About 5 mL. FLUID REPLACEMENT: Crystalloid. COMPLICATIONS: None. CONDITION AND DISPOSITION: Madelyn tolerated the procedure quite well and was recovering in the recovery room in good condition.
== END 2021-05-03 14:35 | disposition home or self-care (01) ==
LOC: M SDC 08:20
PROVIDERS: ATTEND Obstetrics & Gynecology
DX: N85.00 Endometrial hyperplasia, unspecified (principal); N36.42 Intrinsic sphincter deficiency (ISD); N95.0 Postmenopausal bleeding; R32 Unspecified urinary incontinence; R93.89 Abnormal findings on diagnostic imaging of other specified body structures; I10 Essential (primary) hypertension; E78.00 Pure hypercholesterolemia, unspecified; E11.9 Type 2 diabetes mellitus without complications; R01.1 Cardiac murmur, unspecified; R12 Heartburn; M17.0 Bilateral primary osteoarthritis of knee; F41.9 Anxiety disorder, unspecified; R42 Dizziness and giddiness; J44.9 Chronic obstructive pulmonary disease, unspecified; G47.30 Sleep apnea, unspecified; T88.4XXD Failed or difficult intubation, subsequent encounter; J39.8 Other specified diseases of upper respiratory tract; Z87.891 Personal history of nicotine dependence; Z88.1 Allergy status to other antibiotic agents; Z79.899 Other long term (current) drug therapy; Z79.82 Long term (current) use of aspirin; Z79.4 Long term (current) use of insulin
CPT/HCPCS: 51715; 58558; 88305; J0690; J1100; J1885; J2250; J2370; J2405; J3010; L8606

== ENCOUNTER → 2021-05-23 | Outpatient (REF) | payer MEDICARE, MEDICAID ==
[~2021-05-23] MED LIST changes: -DOXY1CAP60 PO; +DOXY50CA51 PO; -LIDOCAINE 1% MDV 20ML VIAL SQ PRN; +LOSA100T45 PO; -LOSA100T50 PO; -LR 1,000 ML IV ONE; -ceFAZolin SOD 2 GM in IV 1 EA IV ONE
[2021-05-23 18:13] LABS: APPEARANCE, URINE CLOUDY (CLEAR); BACTERIA, URINE AUTO 1+ (NEGATIVE); BILIRUBIN, URINE AUTO NEGATIVE (NEGATIVE); BLOOD, URINE BLOOD 2+ (NEGATIVE); COLOR, URINE YELLOW (YELLOW); GLUCOSE, URINE (UA) AUTO NEGATIVE (NEGATIVE); KETONE, URINE AUTO NEGATIVE (NEGATIVE); LEUKOCYTE ESTERASE, URINE AUTO 3+ (NEGATIVE); MUCUS, URINE SMALL (NEGATIVE); NITRITE, URINE AUTO NEGATIVE (NEGATIVE); PROTEIN, URINE AUTO 1+ mg/dL (NEGATIVE); RBC, URINE AUTO 8 /HPF (0-3); SPECIFIC GRAVITY URINE AUTO 1.011 (1.002-1.035); SQUAMOUS EPITHELIAL CELL UR AU 4 /HPF (0-6); UROBILINOGEN, URINE AUTO 0.2 mg/dL (0.0-2.0); WBC, URINE AUTO TNTC /HPF (0-3)
== END ==
LOC: M LAB REF 17:46
PROVIDERS: ATTEND Obstetrics & Gynecology
DX: N39.0 Urinary tract infection, site not specified (principal)

== ENCOUNTER → 2021-09-28 | Outpatient (CLI) | payer MEDICARE, MEDICAID ==
[~2021-09-28] MED LIST changes: -LOSA100T45 PO; +LOSA100T50 PO
--- NOTE | 2021-09-28 10:33 | REPMRS ---
Patient History The patient states she has not had a clinical breast exam in over a year. No known family history of cancer. Benign cyst aspiration of the right breast, 2000. No Hormone Replacement Therapy Tomosynthesis is performed. Volpara breast density is a. [facility] lifetime risk of breast cancer 4.5%. Patient states no breast complaints today. Patient has signed MRS History Sheet. Digital Woman Screen Mammo: September 28, 2021 - Exam #: [id number] Bilateral CC and MLO view(s) were taken. Technologist: Debra Barton Technologist Prior study comparison: October 04, 2019, bilateral digital woman screen mammo performed at [facility]. December 23, 2017, digital woman screen mammo performed at [facility]. FINDINGS: There are scattered fibroglandular densities. There has been no change in the appearance of the mammogram from the prior studies. There is a mild amount of residual fibroglandular tissue which is fairly symmetric. There is no interval development of dominant mass, architectural distortion, or clustered microcalcification suggestive of malignancy. Assessment: BI-RADS/ACR category 1 mammogram. Negative Mammogram. Recommendation Routine screening mammogram in 1 year (for women over age 40). This mammogram was interpreted with the aid of an FDA-approved computer-aided dectection system. Electronically Signed By: Johny Alexandra MD 09/28/21 1033
== END ==
LOC: M WHC 08:49
PROVIDERS: ATTEND Obstetrics & Gynecology
DX: Z12.31 Encounter for screening mammogram for malignant neoplasm of breast (principal); E11.65 Type 2 diabetes mellitus with hyperglycemia; Z86.018 Personal history of other benign neoplasm

== ENCOUNTER → 2021-09-28 | Outpatient (CLI) | payer MEDICARE, MEDICAID ==
[2021-09-28 14:30] LABS: MALB URINE SIEMENS 26.8 MG/L; MAU/CREAT RATIO 38.2 MCG/MG (0.0-30.0)
== END ==
LOC: M PLALAB 09:40
PROVIDERS: ATTEND Nurse Practitioner Family
DX: E11.65 Type 2 diabetes mellitus with hyperglycemia (principal)

== ENCOUNTER → 2021-10-01 | Outpatient (CLI) | payer MEDICARE, MEDICAID ==
--- NOTE | 2021-10-01 09:18 | REP ---
INDICATION: MALIGNANT NEOPLASM OF UNSP KIDNEY, EXCEPT RENAL PELVIS COMPARISON: 09/29/2020. TECHNIQUE: PA/Lateral FINDINGS: Lungs: Chronic interstitial fibrotic change appears stable with no definite superimposed acute infiltrate or other abnormal parenchymal opacity. Heart: There is mild stable cardiomegaly. Mediastinum: There is calcification of the thoracic aorta. The mediastinal silhouette is unchanged. Pleural angles: Unremarkable.. Bones and soft tissues: There are degenerative changes of the spine without compression deformity. IMPRESSION: No acute pulmonary disease. Stable chronic findings as above. <Electronically signed by Johny Alexandra > 10/01/21 0914
[2021-10-01 11:48] LABS: BLOOD UREA NITROGEN 24 MG/DL (7-18); CALCIUM LEVEL 9.8 MG/DL (8.8-10.2); CARBON DIOXIDE LEVEL 25 MEQ/L (21-32); CHLORIDE LEVEL 106 MEQ/L (98-107); CREATININE FOR GFR 0.94 MG/DL (0.55-1.30); GLOMERULAR FILTRATION RATE > 60.0 (>39); GLUCOSE, FASTING 118 MG/DL (70-100); POTASSIUM SERUM 4.4 MEQ/L (3.5-5.1); SODIUM LEVEL 140 MEQ/L (136-145)
== END ==
LOC: M PLAIMG 08:49
PROVIDERS: ATTEND Nurse Practitioner Women's Health
DX: C64.9 Malignant neoplasm of unspecified kidney, except renal pelvis (principal)

== ENCOUNTER → 2021-10-10 | Outpatient (CLI) | payer MEDICARE, MEDICAID ==
[~2021-10-10] MED LIST changes: +ISOVUE-370 76% 100ML VIAL As Ordered ONE
--- NOTE | 2021-10-10 15:03 | REP ---
INDICATION: RENAL CELL CA. COMPARISON: 09/29/2020, 10/18/2019 TECHNIQUE: Axial contrast-enhanced images from the lung bases to the pubic symphysis using 100 cc Isovue 370 intravenous contrast material. Precontrast and delayed images of the abdomen obtained along with coronal and sagittal reformations. This CT examination was performed using the following dose reduction techniques: Automated exposure control, adjustment of mA and/or kv according to the patient's size, and the use of iterative reconstruction technique. FINDINGS: Stable postsurgical changes involving the right kidney are again noted. Left kidney is relatively normal. Liver, spleen, pancreas, gallbladder, and bilateral adrenal glands are normal. The enteric system including stomach, small, and large bowel appears normal. No evidence for obstruction or acute inflammatory process. Normal terminal ileum and appendix are identified in the right lower quadrant. Colonic and sigmoid diverticulosis noted without acute diverticulitis. Pelvis demonstrates normal bladder and age-appropriate uterus/adnexa. No ascites. No free air. No intraperitoneal or retroperitoneal adenopathy. Atherosclerotic changes to the aorta and vasculature noted without aneurysm or dissection. Musculoskeletal structures are intact and without acute osseous abnormality. IMPRESSION: 1. Stable postsurgical changes involving the right kidney. No evidence for recurrence or metastatic disease. 2. Chronic stable changes including colonic diverticulosis without acute diverticulitis. <Electronically signed by Deshaun Frazier > 10/10/21 1500
== END ==
LOC: M RAD 13:42
PROVIDERS: ATTEND Nurse Practitioner Women's Health
DX: C64.9 Malignant neoplasm of unspecified kidney, except renal pelvis (principal)
CPT/HCPCS: 74178; Q9967

== ENCOUNTER → 2021-10-23 | Outpatient (REF) | payer MEDICARE, MEDICAID ==
[~2021-10-23] MED LIST changes: -ISOVUE-370 76% 100ML VIAL As Ordered ONE; +LOSA100T45 PO; -LOSA100T50 PO
[2021-10-23 17:30] LABS: APPEARANCE, URINE CLOUDY (CLEAR); BACTERIA, URINE AUTO NEGATIVE (NEGATIVE); BILIRUBIN, URINE AUTO NEGATIVE (NEGATIVE); BLOOD, URINE BLOOD 2+ (NEGATIVE); COLOR, URINE YELLOW (YELLOW); GLUCOSE, URINE (UA) AUTO NEGATIVE (NEGATIVE); KETONE, URINE AUTO NEGATIVE (NEGATIVE); LEUKOCYTE ESTERASE, URINE AUTO 3+ (NEGATIVE); MUCUS, URINE SMALL (NEGATIVE); NITRITE, URINE AUTO NEGATIVE (NEGATIVE); PROTEIN, URINE AUTO NEGATIVE (NEGATIVE); RBC, URINE AUTO 23 /HPF (0-3); RENAL EPITHELIAL CELLS 1 /HPF; SPECIFIC GRAVITY URINE AUTO 1.012 (1.002-1.035); SQUAMOUS EPITHELIAL CELL UR AU 6 /HPF (0-6); UROBILINOGEN, URINE AUTO 0.2 mg/dL (0.0-2.0); WBC, URINE AUTO TNTC /HPF (0-3)
== END ==
LOC: M SMT 16:47
PROVIDERS: ATTEND Urology
DX: N39.0 Urinary tract infection, site not specified (principal)
CPT/HCPCS: 81001; 87088; 87186; G0463

== ENCOUNTER → 2022-03-19 | Outpatient (CLI) | payer MEDICARE, MEDICAID ==
[2022-03-19 11:09] LABS: CHOLESTEROL RISK RATIO 2.869 (<5)
== END ==
LOC: M PLALAB 03-06 08:04
PROVIDERS: ATTEND Physician Assistant
DX: E78.5 Hyperlipidemia, unspecified (principal)

== ENCOUNTER → 2022-05-22 | Outpatient (CLI) | payer MEDICARE, MEDICAID ==
[2022-05-22 11:15] LABS: HEMATOCRIT 44.3 % (36.0-47.0); HEMOGLOBIN 14.6 g/dl (12.0-15.5); MEAN CORPUSCULAR HEMOGLOBIN 27.6 pg (27.0-33.0); MEAN CORPUSCULAR VOLUME 83.7 fl (80.0-96.0); PLATELET COUNT, AUTOMATED 337 10^3/uL (150-450); RED BLOOD COUNT 5.29 10^6/uL (4.00-5.40); WHITE BLOOD COUNT 8.4 10^3/uL (4.0-10.0)
[2022-05-22 11:42] LABS: RHEUMATOID FACTOR QUANT < 10.0 IU/ML (<15.0); URIC ACID 6.3 MG/DL (2.6-6.0)
[2022-05-22 12:12] LABS: ERYTHROCYTE SEDIMENTATION RATE 41 mm/hr (0-30)
== END ==
LOC: M PLALAB 08:00
PROVIDERS: ATTEND Ophthalmology
DX: H20.9 Unspecified iridocyclitis (principal)

== ENCOUNTER → 2022-11-01 | Outpatient (REF) | payer MEDICARE, MEDICAID ==
[~2022-11-01] MED LIST changes: +GLYB-150 PO; -GLYB5TAB12 PO
[2022-11-01 17:07] LABS: BASO # 0.1 10^3/uL (0.0-0.2); BASO % 1.1 % (0.0-1.0); EOS # 0.1 10^3/uL (0.0-0.5); EOS % 1.2 % (0.0-3.0); HEMATOCRIT 44.7 % (36.0-47.0); HEMOGLOBIN 14.8 g/dl (12.0-15.5); LYMPH # 1.8 10^3/uL (1.5-5.0); LYMPH % 19.5 % (24.0-44.0); MEAN CORPUSCULAR HEMOGLOBIN 28.7 pg (27.0-33.0); MEAN CORPUSCULAR HGB CONC 33.1 g/dl (32.0-36.5); MEAN CORPUSCULAR VOLUME 86.6 fl (80.0-96.0); MONO # 0.7 10^3/uL (0.0-0.8); MONO % 7.3 % (2.0-8.0); NEUTROPHILS # 6.4 10^3/uL (1.5-8.5); NEUTROPHILS % 70.3 % (36.0-66.0); PLATELET COUNT, AUTOMATED 341 10^3/uL (150-450); RED BLOOD COUNT 5.16 10^6/uL (4.00-5.40); WHITE BLOOD COUNT 9.1 10^3/uL (4.0-10.0)
[2022-11-01 17:12] LABS: APPEARANCE, URINE MANUAL CLEAR (CLEAR); BILIRUBIN, URINE MANUAL NEGATIVE (NEGATIVE); COLOR, URINE MANUAL LT YELLOW (YELLOW); GLUCOSE, URINE (UA) MANUAL NEGATIVE (NEGATIVE); KETONE, URINE MANUAL NEGATIVE (NEGATIVE); LEUKOCYTE ESTERASE, URINE MAN NEGATIVE (NEGATIVE); NITRITE, URINE MANUAL NEGATIVE (NEGATIVE); PROTEIN, URINE MANUAL NEGATIVE (NEGATIVE); SPECIFIC GRAVITY,URINE MANUAL 1.015 (1.002-1.035); UROBILINOGEN, URINE MANUAL NORMAL (NORMAL)
[2022-11-01 17:13] LABS: BLOOD URINE MANUAL NEGATIVE (NEGATIVE)
[2022-11-01 17:37] LABS: ERYTHROCYTE SEDIMENTATION RATE 72 mm/hr (0-30)
[2022-11-01 17:39] LABS: ALBUMIN 3.6 G/DL (3.2-5.2); ALKALINE PHOSPHATASE 81 U/L (46-116); ALT/SGPT 23 U/L (7.0-40); AST/SGOT 24 U/L (<34); BILIRUBIN,TOTAL 0.9 MG/DL (0.3-1.2); BLOOD UREA NITROGEN 20 MG/DL (9-23); CALCIUM LEVEL 9.7 MG/DL (8.3-10.6); CARBON DIOXIDE LEVEL 23 MMOL/L (20-31); CHLORIDE LEVEL 100 MMOL/L (98-107); CREATININE FOR GFR 0.96 MG/DL (0.55-1.30); CREATININE,RANDOM URINE 43.1 MG/DL; GLOMERULAR FILTRATION RATE > 60.0 (>39); GLUCOSE, FASTING 96 MG/DL (74-106); POTASSIUM SERUM 4.4 MMOL/L (3.5-5.1); SODIUM LEVEL 136 MMOL/L (136-145); TOTAL PROTEIN 7.2 G/DL (5.7-8.2)
[2022-11-01 17:40] LABS: COMPLEMENT C3 159.8 MG/DL (90.0-170.0); COMPLEMENT C4 24.7 MG/DL (12-36)
== END ==
LOC: M SFHCRHEU 13:28
PROVIDERS: ATTEND Internal Medicine Rheumatology
DX: R76.8 Other specified abnormal immunological findings in serum (principal); R21 Rash and other nonspecific skin eruption; M25.50 Pain in unspecified joint; H57.89 Other specified disorders of eye and adnexa; L65.9 Nonscarring hair loss, unspecified; M35.00 Sjogren syndrome, unspecified

== ENCOUNTER → 2022-11-05 | Outpatient (REF) | payer MEDICARE, MEDICAID ==
[2022-11-05 18:29] LABS: CREATININE, URINE 43.8 MG/DL; MALB URINE SIEMENS < 3.0 MG/DL; MAU/CREAT RATIO 6.8 MCG/MG (0.0-30.0)
== END ==
LOC: M LAB REF 17:17
PROVIDERS: ATTEND Family Medicine
DX: E11.69 Type 2 diabetes mellitus with other specified complication (principal)

== ENCOUNTER → 2022-11-05 | Outpatient (CLI) | payer MEDICARE, MEDICAID | LOC: M WUC 11:59 | PROVIDERS: ATTEND Internal Medicine Rheumatology | DX: R76.8 Other specified abnormal immunological findings in serum (principal); R21 Rash and other nonspecific skin eruption; M25.50 Pain in unspecified joint; H57.89 Other specified disorders of eye and adnexa ==

== ENCOUNTER → 2023-02-06 | Outpatient (CLI) | payer MEDICARE, MEDICAID ==
[~2023-02-06] MED LIST changes: +INSU100I6 SC; -LEVE1INJ5 SC
[2023-02-06 11:27] LABS: APPEARANCE, URINE HAZY (CLEAR); BACTERIA, URINE AUTO NEGATIVE (NEGATIVE); BILIRUBIN, URINE AUTO NEGATIVE (NEGATIVE); BLOOD, URINE BLOOD NEGATIVE (NEGATIVE); COLOR, URINE YELLOW (YELLOW); GLUCOSE, URINE (UA) AUTO NEGATIVE (NEGATIVE); KETONE, URINE AUTO NEGATIVE (NEGATIVE); LEUKOCYTE ESTERASE, URINE AUTO TRACE (NEGATIVE); MUCUS, URINE SMALL (NEGATIVE); NITRITE, URINE AUTO NEGATIVE (NEGATIVE); PROTEIN, URINE AUTO NEGATIVE (NEGATIVE); RBC, URINE AUTO 0 /HPF (0-3); SPECIFIC GRAVITY URINE AUTO 1.012 (1.002-1.035); SQUAMOUS EPITHELIAL CELL UR AU 10 /HPF (0-6); UROBILINOGEN, URINE AUTO 0.2 mg/dL (0.0-2.0); WBC, URINE AUTO 6 /HPF (0-3)
[2023-02-06 11:32] LABS: BASO # 0.1 10^3/uL (0.0-0.2); BASO % 1.3 % (0.0-1.0); EOS # 0.2 10^3/uL (0.0-0.5); EOS % 2.1 % (0.0-3.0); HEMATOCRIT 40.8 % (36.0-47.0); HEMOGLOBIN 13.4 g/dl (12.0-15.5); LYMPH # 1.7 10^3/uL (1.5-5.0); LYMPH % 18.9 % (24.0-44.0); MEAN CORPUSCULAR HEMOGLOBIN 28.4 pg (27.0-33.0); MEAN CORPUSCULAR HGB CONC 32.8 g/dl (32.0-36.5); MEAN CORPUSCULAR VOLUME 86.4 fl (80.0-96.0); MONO # 0.8 10^3/uL (0.0-0.8); MONO % 8.9 % (2.0-8.0); NEUTROPHILS # 6.3 10^3/uL (1.5-8.5); NEUTROPHILS % 68.5 % (36.0-66.0); PLATELET COUNT, AUTOMATED 318 10^3/uL (150-450); RED BLOOD COUNT 4.72 10^6/uL (4.00-5.40); WHITE BLOOD COUNT 9.1 10^3/uL (4.0-10.0)
[2023-02-06 11:59] LABS: ERYTHROCYTE SEDIMENTATION RATE 49 mm/hr (0-30)
[2023-02-06 12:08] LABS: TOTAL PROTEIN,RANDOM URINE 11.8 MG/DL (0.0-14.0)
[2023-02-06 12:12] LABS: CREATININE,RANDOM URINE 72.8 MG/DL
[2023-02-06 16:10] LABS: C REACTIVE PROTEIN QUANTITATIV < 0.40 MG/DL (<1.0)
[2023-02-06 16:12] LABS: ALBUMIN 3.4 G/DL (3.2-5.2); ALKALINE PHOSPHATASE 69 U/L (46-116); ALT/SGPT 23 U/L (7.0-40); AST/SGOT 19 U/L (<34); BILIRUBIN,TOTAL 0.5 MG/DL (0.3-1.2); BLOOD UREA NITROGEN 19 MG/DL (9-23); CALCIUM LEVEL 9.1 MG/DL (8.3-10.6); CARBON DIOXIDE LEVEL 27 MMOL/L (20-31); CHLORIDE LEVEL 100 MMOL/L (98-107); COMPLEMENT C3 138.7 MG/DL (90.0-170.0); COMPLEMENT C4 20.3 MG/DL (12-36); CREATININE FOR GFR 0.88 MG/DL (0.55-1.30); GLOMERULAR FILTRATION RATE > 60.0 (>39); GLUCOSE, FASTING 137 MG/DL (74-106); IMMUNOGLOBULIN A 377.6 MG/DL (40-350); IMMUNOGLOBULIN G 964 MG/DL (650-1600); IMMUNOGLOBULIN M 126.4 MG/DL (50-300); POTASSIUM SERUM 4.8 MMOL/L (3.5-5.1); SODIUM LEVEL 134 MMOL/L (136-145); TOTAL PROTEIN 6.6 G/DL (5.7-8.2)
== END ==
LOC: M WUC 08:13
PROVIDERS: ATTEND Internal Medicine Rheumatology
DX: M35.9 Systemic involvement of connective tissue, unspecified (principal); R21 Rash and other nonspecific skin eruption; H57.89 Other specified disorders of eye and adnexa; L65.9 Nonscarring hair loss, unspecified

== ENCOUNTER → 2023-04-23 | Outpatient (REF) | payer MEDICARE, MEDICAID ==
[~2023-04-23] MED LIST changes: -LOSA100T45 PO; +LOSA100T46 PO
== END ==
LOC: M LAB REF 12:25
PROVIDERS: ATTEND Physician Assistant
DX: R30.0 Dysuria (principal)

== ENCOUNTER → 2023-05-05 | Outpatient (REF) | payer MEDICARE, MEDICAID ==
[2023-05-05 18:00] LABS: APPEARANCE, URINE CLEAR (CLEAR); BACTERIA, URINE AUTO 1+ (NEGATIVE); BILIRUBIN, URINE AUTO NEGATIVE (NEGATIVE); BLOOD, URINE BLOOD NEGATIVE (NEGATIVE); COLOR, URINE STRAW (YELLOW); GLUCOSE, URINE (UA) AUTO NEGATIVE (NEGATIVE); KETONE, URINE AUTO NEGATIVE (NEGATIVE); LEUKOCYTE ESTERASE, URINE AUTO 1+ (NEGATIVE); NITRITE, URINE AUTO NEGATIVE (NEGATIVE); PROTEIN, URINE AUTO NEGATIVE (NEGATIVE); RBC, URINE AUTO 0 /HPF (0-3); SPECIFIC GRAVITY URINE AUTO 1.008 (1.002-1.035); SQUAMOUS EPITHELIAL CELL UR AU 1 /HPF (0-6); UROBILINOGEN, URINE AUTO 0.2 mg/dL (0.0-2.0); WBC, URINE AUTO 21 /HPF (0-3)
== END ==
LOC: M SMT 17:03
PROVIDERS: ATTEND Urology
DX: N39.0 Urinary tract infection, site not specified (principal)

== ENCOUNTER → 2023-05-07 | Outpatient (REF) | payer MEDICARE, MEDICAID | LOC: M LAB REF 17:38 | PROVIDERS: ATTEND Otolaryngology | DX: K11.23 Chronic sialoadenitis (principal) ==

== ENCOUNTER → 2023-06-06 | Outpatient (REF) | payer MEDICARE, MEDICAID | LOC: M SFHCRHEU 11:28 | PROVIDERS: ATTEND Internal Medicine Rheumatology | DX: R21 Rash and other nonspecific skin eruption (principal); M25.50 Pain in unspecified joint; H57.89 Other specified disorders of eye and adnexa; L65.9 Nonscarring hair loss, unspecified; M35.00 Sjogren syndrome, unspecified; R70.0 Elevated erythrocyte sedimentation rate ==

== ENCOUNTER → 2023-07-09 | Outpatient (CLI) | payer MEDICARE, MEDICAID ==
[~2023-07-09] MED LIST changes: +MECL-209 PO; -MECL1TAB31 PO
[2023-07-09 15:49] LABS: THYROID STIMULATING HORMONE 0.772 uIU/ML (0.55-4.78)
[2023-07-09 15:52] LABS: FREE T4 1.11 NG/DL (0.89-1.76)
== END ==
LOC: M PLALAB 09:23
PROVIDERS: ATTEND Family Medicine
DX: R21 Rash and other nonspecific skin eruption (principal); E07.9 Disorder of thyroid, unspecified

== ENCOUNTER → 2023-08-04 | Outpatient (REF) | payer MEDICARE, MEDICAID ==
[2023-08-04 13:43] LABS: APPEARANCE, URINE CLEAR (CLEAR); BACTERIA, URINE AUTO NEGATIVE (NEGATIVE); BILIRUBIN, URINE AUTO NEGATIVE (NEGATIVE); BLOOD, URINE BLOOD NEGATIVE (NEGATIVE); COLOR, URINE YELLOW (YELLOW); GLUCOSE, URINE (UA) AUTO NEGATIVE (NEGATIVE); KETONE, URINE AUTO NEGATIVE (NEGATIVE); LEUKOCYTE ESTERASE, URINE AUTO NEGATIVE (NEGATIVE); NITRITE, URINE AUTO NEGATIVE (NEGATIVE); PROTEIN, URINE AUTO NEGATIVE (NEGATIVE); RBC, URINE AUTO 0 /HPF (0-3); SPECIFIC GRAVITY URINE AUTO 1.009 (1.002-1.035); SQUAMOUS EPITHELIAL CELL UR AU 2 /HPF (0-6); UROBILINOGEN, URINE AUTO 0.2 mg/dL (0.0-2.0); WBC, URINE AUTO 2 /HPF (0-3)
== END ==
LOC: M SMT 13:15
PROVIDERS: ATTEND Urology
DX: R30.0 Dysuria (principal)

== ENCOUNTER → 2024-02-27 | Outpatient (CLI) | payer MEDICARE, MEDICAID ==
[~2024-02-27] MED LIST changes: +DOXY50CA35 PO; -DOXY50CA51 PO
[2024-02-27 11:46] LABS: APPEARANCE, URINE HAZY (CLEAR); BACTERIA, URINE AUTO 1+ (NEGATIVE); BASO # 0.1 10^3/uL (0.0-0.2); BASO % 1.3 % (0.0-1.0); BILIRUBIN, URINE AUTO NEGATIVE (NEGATIVE); BLOOD, URINE BLOOD NEGATIVE (NEGATIVE); C REACTIVE PROTEIN QUANTITATIV < 0.40 MG/DL (<1.0); COLOR, URINE YELLOW (YELLOW); EOS # 0.2 10^3/uL (0.0-0.5); EOS % 2.4 % (0.0-3.0); GLUCOSE, URINE (UA) AUTO NEGATIVE (NEGATIVE); HEMATOCRIT 38.2 % (36.0-47.0); HEMOGLOBIN 12.9 g/dl (12.0-15.5); KETONE, URINE AUTO NEGATIVE (NEGATIVE); LEUKOCYTE ESTERASE, URINE AUTO 2+ (NEGATIVE); LYMPH # 1.3 10^3/uL (1.5-5.0); LYMPH % 16.2 % (24.0-44.0); MEAN CORPUSCULAR HEMOGLOBIN 29.2 pg (27.0-33.0); MEAN CORPUSCULAR HGB CONC 33.8 g/dl (32.0-36.5); MEAN CORPUSCULAR VOLUME 86.4 fl (80.0-96.0); MONO # 0.7 10^3/uL (0.0-0.8); MONO % 8.4 % (2.0-8.0); NEUTROPHILS # 5.7 10^3/uL (1.5-8.5); NEUTROPHILS % 71.4 % (36.0-66.0); NITRITE, URINE AUTO NEGATIVE (NEGATIVE); PLATELET COUNT, AUTOMATED 301 10^3/uL (150-450); PROTEIN, URINE AUTO NEGATIVE (NEGATIVE); RBC, URINE AUTO 1 /HPF (0-3); RED BLOOD COUNT 4.42 10^6/uL (4.00-5.40); SPECIFIC GRAVITY URINE AUTO 1.014 (1.002-1.035); SQUAMOUS EPITHELIAL CELL UR AU 7 /HPF (0-6); UROBILINOGEN, URINE AUTO 0.2 mg/dL (0.0-2.0); WBC, URINE AUTO 49 /HPF (0-3)
[2024-02-27 11:48] LABS: ALKALINE PHOSPHATASE 61 U/L (46-116); ALT/SGPT 18 U/L (7.0-40); AST/SGOT 19 U/L (<34); BILIRUBIN,TOTAL 0.8 MG/DL (0.3-1.2); BLOOD UREA NITROGEN 18 MG/DL (9-23); CALCIUM LEVEL 9.3 MG/DL (8.3-10.6); CARBON DIOXIDE LEVEL 28 MMOL/L (20-31); CHLORIDE LEVEL 98 MMOL/L (98-107); COMPLEMENT C3 113.7 MG/DL (90.0-170.0); COMPLEMENT C4 16.8 MG/DL (12-36); CREATININE FOR GFR 0.86 MG/DL (0.55-1.30); GLOMERULAR FILTRATION RATE > 60.0 (>39); GLUCOSE, FASTING 148 MG/DL (74-106); POTASSIUM SERUM 4.1 MMOL/L (3.5-5.1); SODIUM LEVEL 134 MMOL/L (136-145); TOTAL PROTEIN 6.3 G/DL (5.7-8.2)
[2024-02-27 11:52] LABS: ERYTHROCYTE SEDIMENTATION RATE 29 mm/hr (0-30)
[2024-02-27 12:14] LABS: TOTAL PROTEIN,RANDOM URINE 9.6 MG/DL (0.0-14.0)
[2024-02-27 12:19] LABS: CREATININE,RANDOM URINE 112.1 MG/DL
[2024-03-01 14:13] LABS: COMPLEMENT TOTAL (CH50) > 60 U/mL (>41)
== END ==
LOC: M WUC 08:10
PROVIDERS: ATTEND Internal Medicine Rheumatology
DX: M35.9 Systemic involvement of connective tissue, unspecified (principal); R21 Rash and other nonspecific skin eruption; M25.50 Pain in unspecified joint; H57.89 Other specified disorders of eye and adnexa; M35.00 Sjogren syndrome, unspecified

== ENCOUNTER → 2024-03-03 | Outpatient (REF) | payer MEDICARE, MEDICAID | LOC: M LAB REF 16:47 | PROVIDERS: ATTEND Family Medicine | DX: R30.0 Dysuria (principal) ==

== ENCOUNTER → 2024-03-30 | Outpatient (REF) | payer MEDICARE, MEDICAID | LOC: M LAB REF 17:23 | PROVIDERS: ATTEND Family Medicine | DX: N39.0 Urinary tract infection, site not specified (principal) ==

== ENCOUNTER → 2024-08-20 | Outpatient (CLI) | payer MEDICARE, MEDICAID ==
[~2024-08-20] MED LIST changes: +AMLO1TAB24 PO; -DOXY50CA35 PO; +DOXY50CA50 PO; +EZET10TA21 PO; +FERR325T19 PO; +OMEP40CA5 PO; +RA N1TAB PO; +TRES1INJ2 SC
[2024-08-20 11:05] LABS: BASO # 0.1 10^3/uL (0.0-0.2); BASO % 1.3 % (0.0-1.0); EOS # 0.3 10^3/uL (0.0-0.5); HEMATOCRIT 36.4 % (36.0-47.0); HEMOGLOBIN 12.4 g/dl (12.0-15.5); LYMPH # 1.2 10^3/uL (1.5-5.0); LYMPH % 15.1 % (24.0-44.0); MEAN CORPUSCULAR HEMOGLOBIN 29.4 pg (27.0-33.0); MEAN CORPUSCULAR HGB CONC 34.1 g/dl (32.0-36.5); MEAN CORPUSCULAR VOLUME 86.3 fl (80.0-96.0); MONO # 0.8 10^3/uL (0.0-0.8); MONO % 9.5 % (2.0-8.0); NEUTROPHILS # 5.7 10^3/uL (1.5-8.5); NEUTROPHILS % 69.5 % (36.0-66.0); PLATELET COUNT, AUTOMATED 336 10^3/uL (150-450); RED BLOOD COUNT 4.22 10^6/uL (4.00-5.40); WHITE BLOOD COUNT 8.2 10^3/uL (4.0-10.0)
[2024-08-20 11:11] LABS: ERYTHROCYTE SEDIMENTATION RATE 45 mm/hr (0-30)
[2024-08-20 11:24] LABS: APPEARANCE, URINE CLEAR (CLEAR); BACTERIA, URINE AUTO NEGATIVE (NEGATIVE); BILIRUBIN, URINE AUTO NEGATIVE (NEGATIVE); BLOOD, URINE BLOOD NEGATIVE (NEGATIVE); COLOR, URINE YELLOW (YELLOW); GLUCOSE, URINE (UA) AUTO NEGATIVE (NEGATIVE); KETONE, URINE AUTO NEGATIVE (NEGATIVE); LEUKOCYTE ESTERASE, URINE AUTO 1+ (NEGATIVE); MUCUS, URINE SMALL (NEGATIVE); NITRITE, URINE AUTO NEGATIVE (NEGATIVE); PROTEIN, URINE AUTO NEGATIVE (NEGATIVE); RBC, URINE AUTO 1 /HPF (0-3); SPECIFIC GRAVITY URINE AUTO 1.009 (1.002-1.035); SQUAMOUS EPITHELIAL CELL UR AU 1 /HPF (0-6); UROBILINOGEN, URINE AUTO 0.2 mg/dL (0.0-2.0); WBC, URINE AUTO 4 /HPF (0-3)
[2024-08-20 11:36] LABS: C REACTIVE PROTEIN QUANTITATIV < 0.40 MG/DL (<1.0)
[2024-08-20 11:38] LABS: ALBUMIN 3.2 G/DL (3.2-5.2); ALKALINE PHOSPHATASE 85 U/L (35-104); ALT/SGPT 22 U/L (7.0-40); AST/SGOT 18 U/L (<34); BILIRUBIN,TOTAL 0.6 MG/DL (0.3-1.2); BLOOD UREA NITROGEN 20 MG/DL (9-23); CALCIUM LEVEL 9.4 MG/DL (8.3-10.6); CARBON DIOXIDE LEVEL 28 MMOL/L (20-31); CHLORIDE LEVEL 98 MMOL/L (98-107); CREATININE FOR GFR 0.92 MG/DL (0.55-1.30); GLOMERULAR FILTRATION RATE > 60.0 (>39); GLUCOSE, FASTING 129 MG/DL (74-106); POTASSIUM SERUM 4.9 MMOL/L (3.5-5.1); SODIUM LEVEL 129 MMOL/L (136-145); TOTAL PROTEIN 6.8 G/DL (5.7-8.2)
[2024-08-20 11:39] LABS: COMPLEMENT C3 134.6 MG/DL (90.0-170.0)
[2024-08-20 11:44] LABS: TOTAL PROTEIN,RANDOM URINE 6.8 MG/DL (0.0-14.0)
[2024-08-20 11:49] LABS: CREATININE,RANDOM URINE 43.9 MG/DL
[2024-08-24 17:57] LABS: COMPLEMENT TOTAL (CH50) > 60 U/mL (31-60)
== END ==
LOC: M WUC 08:07
PROVIDERS: ATTEND Internal Medicine Rheumatology
DX: R21 Rash and other nonspecific skin eruption (principal); M25.50 Pain in unspecified joint; H57.89 Other specified disorders of eye and adnexa; L65.9 Nonscarring hair loss, unspecified; M35.00 Sjogren syndrome, unspecified; R70.0 Elevated erythrocyte sedimentation rate

== ENCOUNTER 2024-08-27 08:52 | Day surgery (SDC) | payer MEDICARE, MEDICAID ==
[~2024-08-27] VITALS: Ht 152.4 cm; Wt 126.4 kg
[~2024-08-27 08:52] MED LIST changes: +NS 250 ML IV ONE
[2024-08-27] MEDS ORDERED: LIDOCAINE 2% 100MG/5ML SDV (FOR ANES.) As Ordered ONE (11:11)
[2024-08-27] MEDS ORDERED: propofoL 200 MG/20 ML VIAL As Ordered ONE (11:11)
[2024-08-27 11:41] VITALS: TEMP 98.3
[2024-08-27 11:57] VITALS: BP 165/73; O2SAT 99
== END 2024-08-27 12:06 | disposition home or self-care (01) ==
LOC: M OPP 08:52
PROVIDERS: ATTEND Surgery
DX: Z12.11 Encounter for screening for malignant neoplasm of colon (principal); Z12.12 Encounter for screening for malignant neoplasm of rectum; K57.30 Diverticulosis of large intestine without perforation or abscess without bleeding; K64.0 First degree hemorrhoids; Z86.0100 Personal history of colon polyps, unspecified; K21.9 Gastro-esophageal reflux disease without esophagitis; E10.9 Type 1 diabetes mellitus without complications; I10 Essential (primary) hypertension; E78.00 Pure hypercholesterolemia, unspecified; J44.9 Chronic obstructive pulmonary disease, unspecified; Z79.82 Long term (current) use of aspirin; Z79.899 Other long term (current) drug therapy; Z79.4 Long term (current) use of insulin; Z90.89 Acquired absence of other organs; Z88.8 Allergy status to other drugs, medicaments and biological substances; Z96.41 Presence of insulin pump (external) (internal)

== ENCOUNTER → 2024-09-02 | Outpatient (CLI) | payer MEDICARE, MEDICAID ==
[~2024-09-02] MED LIST changes: -NS 250 ML IV ONE
[2024-09-02 10:34] LABS: ALBUMIN 3.2 G/DL (3.2-5.2); ALKALINE PHOSPHATASE 75 U/L (35-104); ALT/SGPT 22 U/L (7.0-40); AST/SGOT 19 U/L (<34); BILIRUBIN,TOTAL 0.8 MG/DL (0.3-1.2); BLOOD UREA NITROGEN 21 MG/DL (9-23); CALCIUM LEVEL 9.6 MG/DL (8.3-10.6); CARBON DIOXIDE LEVEL 28 MMOL/L (20-31); CHLORIDE LEVEL 96 MMOL/L (98-107); CHOLESTEROL LEVEL 143 MG/DL (<200); CHOLESTEROL RISK RATIO 2.52 (<5); CREATININE FOR GFR 0.88 MG/DL (0.55-1.30); GLOMERULAR FILTRATION RATE > 60.0 (>39); GLUCOSE, FASTING 147 MG/DL (74-106); HDL CHOLESTEROL 56.7 MG/DL (>40); LDL CHOLESTEROL 75.7 MG/DL (<100); NON-HDL-C 86.3 MG/DL; POTASSIUM SERUM 4.9 MMOL/L (3.5-5.1); SODIUM LEVEL 130 MMOL/L (136-145); TOTAL PROTEIN 6.8 G/DL (5.7-8.2); TRIGLYCERIDES LEVEL 53 MG/DL (<150)
[2024-09-02 10:53] LABS: CREATININE, URINE 50.7 MG/DL; MALB URINE SIEMENS < 3.0 MG/L; MAU/CREAT RATIO 5.9 MCG/MG (0.0-30.0)
== END ==
LOC: M WUC 08:09
PROVIDERS: ATTEND Nurse Practitioner Family
DX: E11.65 Type 2 diabetes mellitus with hyperglycemia (principal); E78.00 Pure hypercholesterolemia, unspecified

== ENCOUNTER → 2025-03-15 | Outpatient (REF) | payer MEDICARE, MEDICAID ==
[2025-03-15 18:26] LABS: CREATININE, URINE 73.8 MG/DL
== END ==
LOC: M LAB REF 16:51
PROVIDERS: ATTEND Family Medicine
DX: R39.15 Urgency of urination (principal); E11.69 Type 2 diabetes mellitus with other specified complication

== ENCOUNTER → 2025-05-12 | Outpatient (REF) | payer MEDICARE, MEDICAID ==
[2025-05-12 16:03] LABS: BASO # 0.1 10^3/uL (0.0-0.2); BASO % 0.7 % (0.0-1.0); EOS # 0.2 10^3/uL (0.0-0.5); EOS % 1.6 % (0.0-3.0); LYMPH # 1.7 10^3/uL (1.5-5.0); LYMPH % 17.2 % (24.0-44.0); MONO # 0.7 10^3/uL (0.0-0.8); MONO % 7.2 % (2.0-8.0); NEUTROPHILS # 7.3 10^3/uL (1.5-8.5); NEUTROPHILS % 72.8 % (36.0-66.0); PLATELET COUNT, AUTOMATED 285 10^3/uL (150-450)
== END ==
LOC: M SFHCRHEU 10:25
PROVIDERS: ATTEND Internal Medicine Rheumatology
DX: M35.9 Systemic involvement of connective tissue, unspecified (principal); R21 Rash and other nonspecific skin eruption; M25.50 Pain in unspecified joint; H57.89 Other specified disorders of eye and adnexa; L65.9 Nonscarring hair loss, unspecified; M35.00 Sjogren syndrome, unspecified; R70.0 Elevated erythrocyte sedimentation rate; R82.998 Other abnormal findings in urine

== ENCOUNTER → 2025-08-12 | Outpatient (CLI) | payer MEDICARE, MEDICAID ==
[~2025-08-12] MED LIST changes: -EZET10TA21 PO; +EZET10TA57 PO
== END ==
LOC: M RAD 10:50
PROVIDERS: ATTEND Physician Assistant
DX: R13.10 Dysphagia, unspecified (principal)